=== PATIENT | male | born 1965 | race Two or more races ===

== ENCOUNTER 2022-07-23 19:00 | Inpatient (IN) | payer MEDICAID ==
[~2022-07-23] VITALS: Ht 185.4 cm; Wt 86.4 kg
[2022-07-23 22:29] LABS: Basophils # (auto) 0.1 10 ^3/uL (0-0.2); Basophils % (auto) 0.6 % (0.0-2.0); Eosinophils # (auto) 0.3 10 ^3/uL (0-0.8); Eosinophils % (auto) 2.5 % (0.0-7.0); Hematocrit 41.9 % (41.0-53.0); Hemoglobin 13.9 g/dL (13.5-17.5); Lymphocytes # (auto) 1.5 10 ^3/uL (0.4-5.4); Lymphocytes % (auto) 13.5 % (10.0-50.0); Mean Corpuscular Hemoglobin 30.1 pg (28.0-32.0); Mean Corpuscular Hgb Conc. 33.1 g/dL (32.0-36.0); Monocytes # (auto) 0.9 10 ^3/uL (0-1.3); Monocytes % (auto) 7.8 % (0.0-12.0); Neutrophils # (auto) 8.6 10 ^3/uL (1.6-8.6); Neutrophils % (auto) 75.6 % (37.0-80.0); Nucleated Red Blood Cells % 0.1 %; Red Cell Distribution Width 13.6 % (11.8-14.3); White Blood Cell 11.3 10^3/uL (4.4-10.8)
[2022-07-23 22:52] LABS: Albumin 2.8 g/dL (3.4-5.0); BUN/Creatinine Ratio 19.4; Calcium 8.2 mg/dL (8.5-10.1); Potassium 4.5 mmol/L (3.5-5.1)
[2022-07-23 22:55] LABS: Bilirubin, Total 0.6 mg/dL (0.2-1.0); Total Protein 6.5 g/dL (6.4-8.2)
[2022-07-24] MEDS ORDERED: VANCOMYCIN 1GM/250ML 250 ML IV ONE ×2 (02:00→07:30)
[2022-07-24] MEDS ORDERED: SODIUM CHLORIDE 0.9% 1,000 ML IV ONE (02:00)
[2022-07-24] MEDS ORDERED: LIDOCAINE 1% (LOCAL ANESTH.) PF 5ml SDV IJ ONE (02:00)
[2022-07-24] MEDS ORDERED: PIPERACILLIN-TAZO 4.5GM 100 ML IV ONE (02:00)
[2022-07-24 02:28] LABS: Urine Bacteria FEW /hpf (None Seen); Urine Blood 2+ /uL (Negative); Urine Mucus FEW (None Seen); Urine Specific Gravity 1.028 (1.001-1.035); Urine WBC 97 /hpf (0 - 3)
[2022-07-24] MEDS ORDERED: ONDANSETRON HCL 4 MG/2 ML VIAL IV PRN (06:30)
[2022-07-24] MEDS ORDERED: TEMAZEPAM 15 MG CAP PO PRN (06:30)
[2022-07-24] MEDS ORDERED: ACETAMINOPHEN 325 MG TAB PO PRN (06:30)
[2022-07-24] MEDS: cefTRIAXone 1GM/50ML D5W 50 ML IV SCH (08:49)
[2022-07-24] MEDS: PANTOPRAZOLE 40 MG TAB PO SCH (10:32)
[2022-07-24] MEDS: LISINOPRIL 5 MG TAB PO SCH (10:33)
[2022-07-24 12:27] LABS: Albumin 2.4 g/dL (3.4-5.0); Potassium 4.2 mmol/L (3.5-5.1)
[2022-07-24 12:31] LABS: BUN/Creatinine Ratio 17.9; Bilirubin, Total 0.6 mg/dL (0.2-1.0); Phosphorus 2.9 mg/dL (2.5-4.90); Total Protein 6.2 g/dL (6.4-8.2)
[2022-07-24 12:46] LABS: Basophils # (auto) 0.1 10 ^3/uL (0-0.2); Basophils % (auto) 0.7 % (0.0-2.0); Eosinophils # (auto) 0.3 10 ^3/uL (0-0.8); Eosinophils % (auto) 3.2 % (0.0-7.0); Hematocrit 40.8 % (41.0-53.0); Hemoglobin 13.4 g/dL (13.5-17.5); Lymphocytes # (auto) 1.3 10 ^3/uL (0.4-5.4); Lymphocytes % (auto) 13.8 % (10.0-50.0); Mean Corpuscular Hemoglobin 29.9 pg (28.0-32.0); Mean Corpuscular Hgb Conc. 32.9 g/dL (32.0-36.0); Mean Corpuscular Volume 90.9 fL (80.0-100.0); Monocytes # (auto) 0.9 10 ^3/uL (0-1.3); Monocytes % (auto) 9.1 % (0.0-12.0); Neutrophils # (auto) 7.1 10 ^3/uL (1.6-8.6); Neutrophils % (auto) 73.2 % (37.0-80.0); Nucleated Red Blood Cells % 0.1 %; Red Blood Cells 4.49 10^6/uL (4.5-5.90); Red Cell Distribution Width 13.5 % (11.8-14.3); White Blood Cell 9.7 10^3/uL (4.4-10.8)
[2022-07-24] MEDS ORDERED: IOHEXOL 300 MG/ML 100ML BOTTLE IJ ONE (12:57)
[2022-07-24 13:14] LABS: Alcohol, Urine < 3.0 mg/dL (0-10); Amphetamine Screen, Urine POSITIVE (NEGATIVE); Barbiturate Scree,Urine NEGATIVE (NEGATIVE); Benzodiazephine Screen, Urine NEGATIVE (NEGATIVE); Cannabinoid Screen, Urine POSITIVE (NEGATIVE); Cocaine Screen, Urine NEGATIVE (NEGATIVE); Opiate Scree,Urine NEGATIVE (NEGATIVE); Phencyclidine Screen, Urine NEGATIVE (NEGATIVE)
[2022-07-24 13:15] LABS: Cholesterol 107 mg/dL (< 200); HDL Cholesterol 50 mg/dL (40-59); LDL Cholesterol 59 mg/dL (< 100); Triglycerides 68 mg/dL (< 150)
[2022-07-24] MEDS: CLINDAMYCIN 600MG IV 50 ML IV SCH ×2 (14:14→23:06)
[2022-07-24 22:01] VITALS: BP 133/83
[2022-07-25] MEDS: HYDROcodone-ACET 5/325MG TAB PO PRN ×3 (01:21→20:39)
[2022-07-25 04:55] VITALS: BP 149/95
[2022-07-25] MEDS: CLINDAMYCIN 600MG IV 50 ML IV SCH ×2 (05:34→13:36)
[2022-07-25 06:13] LABS: Basophils # (auto) 0 10 ^3/uL (0-0.2); Basophils % (auto) 0.4 % (0.0-2.0); Eosinophils # (auto) 0.4 10 ^3/uL (0-0.8); Hematocrit 46.7 % (41.0-53.0); Hemoglobin 15.5 g/dL (13.5-17.5); Lymphocytes # (auto) 1.5 10 ^3/uL (0.4-5.4); Mean Corpuscular Hemoglobin 30.3 pg (28.0-32.0); Mean Corpuscular Hgb Conc. 33.2 g/dL (32.0-36.0); Mean Corpuscular Volume 91.3 fL (80.0-100.0); Monocytes # (auto) 0.8 10 ^3/uL (0-1.3); Monocytes % (auto) 8.9 % (0.0-12.0); Neutrophils # (auto) 6.4 10 ^3/uL (1.6-8.6); Neutrophils % (auto) 70.7 % (37.0-80.0); Red Blood Cells 5.12 10^6/uL (4.5-5.90); Red Cell Distribution Width 13.6 % (11.8-14.3); White Blood Cell 9.1 10^3/uL (4.4-10.8)
[2022-07-25 06:25] LABS: BUN/Creatinine Ratio 18.3; Calcium 8.2 mg/dL (8.5-10.1); Potassium 4.2 mmol/L (3.5-5.1)
[2022-07-25 09:00] VITALS: BP 116/78
[2022-07-25] MEDS: cefTRIAXone 1GM/50ML D5W 50 ML IV SCH (09:39)
[2022-07-25] MEDS: LISINOPRIL 5 MG TAB PO SCH (09:40)
[2022-07-25] MEDS: PANTOPRAZOLE 40 MG TAB PO SCH (09:40)
[2022-07-25 13:02] VITALS: BP 142/90
[2022-07-25 16:36] VITALS: BP 130/71
[2022-07-25] MEDS ORDERED: ALPRAZolam 0.5 MG TAB PO PRN (17:45)
[2022-07-25] MEDS ORDERED: VANCOMYCIN PER PHARMACY 0 MG IV SCH (18:15)
[2022-07-25] MEDS: VANCOMYCIN 1GM/250ML 250 ML IV SCH (20:25)
[2022-07-25] MEDS: CARVEDILOL 3.125 MG TAB PO SCH (21:59)
[2022-07-25 22:00] VITALS: BP 140/64
[2022-07-26] MEDS: HYDROcodone-ACET 5/325MG TAB PO PRN (04:38)
[2022-07-26 05:00] VITALS: BP 126/85
[2022-07-26 06:44] LABS: Albumin 2.7 g/dL (3.4-5.0); BUN/Creatinine Ratio 21.8; Calcium 8.8 mg/dL (8.5-10.1); Potassium 4.4 mmol/L (3.5-5.1)
[2022-07-26 06:47] LABS: Phosphorus 3.7 mg/dL (2.5-4.90)
[2022-07-26] MEDS: VANCOMYCIN 1GM/250ML 250 ML IV SCH (08:18)
[2022-07-26 08:45] VITALS: BP 128/78
[2022-07-26] MEDS: CARVEDILOL 3.125 MG TAB PO SCH (10:31)
[2022-07-26] MEDS: PANTOPRAZOLE 40 MG TAB PO SCH (10:31)
[2022-07-26] MEDS: LISINOPRIL 5 MG TAB PO SCH (10:32)
== END 2022-07-26 12:15 | disposition left against medical advice (07) | DRG 383 ==
LOC: ER 19:00 → OVERFLOW 07-24 06:18 → WEST WING 07-24 18:35 → TELE-WESTW 07-25 08:19
PROVIDERS: ADMIT Nurse Practitioner; ATTEND Internal Medicine
PROC: 0X980ZZ Drainage of Right Upper Arm, Open Approach (ICD-10-PCS; principal; 2022-07-24)
DX: L03.113 Cellulitis of right upper limb (principal); F10.10 Alcohol abuse, uncomplicated; F15.10 Other stimulant abuse, uncomplicated; F17.210 Nicotine dependence, cigarettes, uncomplicated; I10 Essential (primary) hypertension; I45.10 Unspecified right bundle-branch block; N39.0 Urinary tract infection, site not specified; Z53.29 Procedure and treatment not carried out because of patient's decision for other reasons; L02.413 Cutaneous abscess of right upper limb; R73.03 Prediabetes; I49.9 Cardiac arrhythmia, unspecified; Z59.00 Homelessness unspecified
CPT/HCPCS: 10060; 36415; 71045; 72141; 80048; 80053; 80061; 80069; 80307; 81001; 83036; 83605; 83735; 83880; 84100; 84443; 84484; 85025; 86703; 86803; 87040; 87077; 87186; 87205; 87340; 93005; 93306; 93971; 96361; 96365; 96366; 96367; G0378; J0696; J2543; J3490